=== PATIENT | female | born 1995 | race Caucasian/White ===

== ENCOUNTER → 2018-07-07 | Outpatient (CLI) | payer BC ==
--- NOTE | 2018-07-07 13:25 | Diagnostic Imaging Report ---
TECHNIQUE: Magnetic resonance imaging of the RIGHT KNEE was performed WITHOUT injected contrast. HISTORY: LATERAL MENISCUS TEAR LEFT KNEE , fell, heard a pop, pain lateral side and posterior, injury one week ago, pain and swelling COMPARISON: None available. FINDINGS: LIGAMENTS AND TENDONS: ACL: No visible intact fibers. PCL: Intact Collateral ligaments: Intact Iliotibial band: Unremarkable Popliteal tendon: Intact Extensor mechanism: Intact JOINT: Menisci: Medial: Intrasubstance signal within the posterior horn, predominantly an oblique distribution which appears to extend to the tibial articular surface at the periphery (series 3 image 22). Lateral: Intact Articular Cartilage: Medial Compartment: No focal defect. Lateral Compartment: Subtle impaction at the anterior weightbearing surface of the lateral femoral condyle. Patellofemoral Compartment: No focal defect. Joint Fluid: The amount of fluid within the joint is within physiologic limits. BONES: No focal or infiltrative bone marrow replacing abnormality. Multifocal bone marrow edema, most notably the posterior aspect of the medial tibial plateau, periphery of the medial femoral condyle, posterior aspect of the lateral tibial plateau, and the anterior weightbearing portion of the lateral femoral condyle. Subtle curvilinear hypointense signal centered within the posterior medial tibial plateau bone marrow edema which extends to the articular cartilage (series 7 image 16). SOFT TISSUES: Synovitis and moderate nonspecific joint effusion. A 1.2 cm (AP) x 1.5 cm (ML) x 1.3 cm (CC) fluid signal intensity adjacent to the posterior horn of the medial meniscus. IMPRESSION: 1. Acute, complete anterior cruciate ligament tear, with associated pivot shift bone marrow contusion pattern. 2. Additional bone marrow contusions of the posterior aspect of the medial tibial plateau and periphery of the medial femoral condyle with a subtle nondisplaced intra-articular fracture at the posterior aspect of the medial tibial plateau. 3. Small, oblique, nondisplaced tear of the posterior horn of the medial meniscus with adjacent parameniscal cyst. Signed by: Dr. Kirill Abdullahi D.O., M.M.M. on 07/07/2018 1:22 PM
== END ==
LOC: MRI 11:11
PROVIDERS: ATTEND Specialist
DX: S83.281A Other tear of lateral meniscus, current injury, right knee, initial encounter (principal)